=== PATIENT | male | born 1990 | race Caucasian/White ===

== ENCOUNTER 2016-06-08 14:00 | Inpatient (IN) | payer OTHER ==
[2016-06-08] MEDS ORDERED: chlordiazePOXIDE HCL 25 MG CAPSULE PO PRN (16:27)
[2016-06-08] MEDS ORDERED: MENTHOL/PHENOL 1 EACH UD MM PRN (16:27)
[2016-06-08] MEDS ORDERED: hydrOXYzine PAMOATE 50 MG CAPSULE (FP) PO PRN (16:27)
[2016-06-08] MEDS ORDERED: MAG HYDROX/AL HYDROX/SIMETH 30 ML UNIT-DOSE CUP PO PRN (16:27)
[2016-06-08] MEDS ORDERED: IBUPROFEN 400 MG TABLET (FP) PO PRN (16:27)
[2016-06-08] MEDS ORDERED: NICOTINE POLACRILEX 2 MG GUM BC PRN (16:27)
[2016-06-08] MEDS ORDERED: diphenhydrAMINE HCL 50 MG CAPSULE PO PRN (16:27)
[2016-06-08] MEDS ORDERED: MAGNESIUM CITRATE 300 ML BOTTLE PO PRN (16:27)
[2016-06-08] MEDS ORDERED: LOPERAMIDE HCL 2 MG CAPSULE PO PRN (16:27)
[2016-06-08] MEDS ORDERED: ACETAMINOPHEN 325 MG TABLET (FP) PO PRN (16:27)
[2016-06-08] MEDS ORDERED: guaiFENesin/D-METHORPHAN HB 10 ML UNIT-DOSE CUPS PO PRN (16:27)
[2016-06-08] MEDS ORDERED: P-EPHED 60MG/TRIPROLIDI 2.5MG TABLET PO PRN (16:27)
[2016-06-08] MEDS ORDERED: MAGNESIUM HYDROX 2400MG/30ML ORAL SUSPENSION 30 ML CUP PO PRN (16:27)
[2016-06-08] MEDS ORDERED: ALBUTEROL SO4 2.5/IPRATROPIUM 0.5 INH SOL 3 ML VIAL.NEB. NEB PRN (16:29)
[2016-06-08] MEDS ORDERED: ALBUTEROL SO4 6.7 GM HFA INHALER IH PRN (16:29)
[2016-06-08 16:30] VITALS: BMI 29.6
[2016-06-08] MEDS ORDERED: ONDANSETRON *ODT* 4 MG TABLET SL PRN (16:30)
--- NOTE | 2016-06-08 16:30 | HP ---
CIWA Score - CIWA Score Nausea/Vomitin Muscle Tremors: 4-Moderate,w/Arms Extend Anxiety: 4-Mod. Anxious/Guarded Agitation: 4-Moderately Restless Paroxysmal Sweats: 2 Orientation: 0-Oriented Tacttile Disturbances: 0-None Auditory Disturbances: 0-None Visual Disturbances: 0-None Headache: 0-None Present CIWA-Ar Total Score: 16 Admission ROS BHS - HPI Chief Complaint: WITHDRAWAL SX Allergies/Adverse Reactions: Allergies Allergy/AdvReac Type Severity Reaction Status Date / Time No Known Allergies Allergy Verified 06/08/16 16:23 History of Present Illness: 26 YEARS OLD MALE WITH LONG HISTORY OF ALCOHOL COCAINE MARIJUANA NICOTINE DEPENDENCE, HAS ASTHMA AND VOMITING X 1 EARLY TODAY FROM ALCOHOL WITHDRAWAL IS ADMITTED TO DETOX Exam Limitations: No Limitations - Ebola screening Have you traveled outside of the country in the last 21 days: No (N) Have you had contact with anyone from an Ebola affected area: No Have you been sick,other than usual withdrawal symptoms: No Do you have a fever: No - Review of Systems Constitutional: Chills, Changes in sleep, Weight Stable EENT: reports: No Symptoms Reported Respiratory: reports: No Symptoms reported Cardiac: reports: No Symptoms Reported GI: reports: Diarrhea, Nausea, Poor Fluid Intake, Vomiting, Abdominal cramping : reports: No Symptoms Reported Musculoskeletal: reports: No Symptoms Reported Integumentary: reports: No Symptoms Reported Neuro: reports: Tremors Endocrine: reports: No Symptoms Reported Hematology: reports: No Symptoms Reported Psychiatric: reports: Judgement Intact, Mood/Affect Appropiate, Orientated x3 Other Systems: Reviewed and Negative Patient History - Patient Medical History Hx Anemia: No Hx Asthma: Yes Hx Chronic Obstructive Pulmonary Disease (COPD): No Hx Cancer: No Hx Cardiac Disorders: No Hx Congestive Heart Failure: No Hx Hypertension: No Hx Hypercholesterolemia: No Hx Pacemaker: No HX Cerebrovascular Accident: No Hx Seizures: No Hx Dementia: No Hx Diabetes: No Hx Gastrointestinal Disorders: No Hx Liver Disease: No Hx Genitourinary Disorders: No Hx Sexually Transmitted Disorders: No Hx Renal Disease (ESRD): No Hx Thyroid Disease: No Hx Human Immunodeficiency Virus (HIV): No Hx Hepatitis C: No Hx Depression: No Hx Suicide Attempt: No Hx Bipolar Disorder: No Hx Schizophrenia: No - Patient Surgical History Past Surgical History: No - PPD History Previous Implant?: Yes Documented Results: Negative w/o proof Implanted On Prior [facility] Admission?: No PPD to be Administered?: Yes - Smoking Cessation Smoking history: Current every day smoker Have you smoked in the past 12 months: Yes Aproximately how many cigarettes per day: 2 Cigars Per Day: 0 Hx Chewing Tobacco Use: No Initiated information on smoking cessation: Yes 'Breaking Loose' booklet given: 06/08/16 - Substance & Tx. History Hx Alcohol Use: Yes Hx Substance Use: Yes Substance Use Type: Alcohol, Cocaine, Marijuana Hx Substance Use Treatment: No - Substances Abused Alcohol Route: Oral Frequency: Daily Amount used: 3 [place] Age of first use: 17 Date of Last Use: 06/07/16 Family Disease History - Family Disease History Family Disease History: Diabetes: Grandparent, Mother, Heart Disease: Mother Admission Physical Exam [facility] - Physical General Appearance: Yes: Nourished, Appropriately Dressed, Mild Distress, Tremorous, Irritable, Sweating, Anxious HEENTM: Yes: Hearing grossly Normal, Normal ENT Inspection, Normocephalic, Normal Voice Respiratory: Yes: Chest Non-Tender, Lungs Clear, Normal Breath Sounds, No Respiratory Distress, No Accessory Muscle Use Neck: Yes: Supple, Trachea in good position Breast: Yes: Breasts Symetrical, No Discharge, No masses Cardiology: Yes: Regular Rhythm, Regular Rate, S1, S2 Abdominal: Yes: Non Tender, Soft, Increased Bowel Sounds Genitourinary: Yes: Within Normal Limits Back: Yes: Normal Inspection Musculoskeletal: Yes: full range of Motion, Gait Steady Extremities: Yes: Normal Inspection, Normal Range of Motion, Non-Tender, Tremors Neurological: Yes: Fully Oriented, Alert, Motor Strength 5/5, Normal Mood/Affect , Normal Response Integumentary: Yes: Warm, Clammy Lymphatic: Yes: Within Normal Limits - Diagnostic (1) Alcohol dependence with uncomplicated withdrawal Current Visit: Yes Status: Acute (2) Asthma Current Visit: Yes Status: Acute Qualifiers: Asthma severity: mild intermittent Asthma complication type: with status asthmaticus Qualified Code(s): J45.22 - Mild intermittent asthma with status asthmaticus (3) Vomiting and diarrhea Current Visit: Yes Status: Acute Comment: ZOFRAN/IMODIUM ALCOHOL WITHDRAWAL RELATED (4) Nicotine dependence Current Visit: Yes Status: Acute Qualifiers: Nicotine product type: cigarettes Substance use status: in withdrawal Qualified Code(s): F17.213 - Nicotine dependence, cigarettes, with withdrawal Cleared for Admission BHS - Detox or Rehab [facility] Level of Care: Medically Managed Detox Regimen/Protocol: Librium S Breath Alcohol Content Breath Alcohol Content: 0 Vital Signs - Vital Signs Vital Signs Refused: No Temperature: 96 F Temperature Source: Oral Pulse Rate: 79 Respiratory Rate: 20 Blood Pressure: 139/76 BP Location: Left Arm Blood Pressure Position: Sitting - Height Height: 5 ft 5 in - Weight Weight: 178 lb Body Mass Index (BMI): 29.6 - Bowel Function Bowel Movement: Yes Urine Drug Screen - Control Is Test Valid: Yes - Results Drug Screen Negative: No Urine Drug Screen Results: THC-Marijuana, WILLAM-Cocaine
[2016-06-08] MEDS: chlordiazePOXIDE HCL 25 MG CAPSULE PO SCH (22:40)
[2016-06-08] MEDS: THIAMINE HCL 100 MG TABLET (FP) PO SCH (22:41)
[2016-06-08 23:09] LABS: PH,URINE 7.5 (5.0-8.0); URINE APPEARANCE CLEAR; URINE BILIRUBIN NEGATIVE (NEGATIVE); URINE BLOOD NEGATIVE (NEGATIVE); URINE COLOR LT. YELLOW; URINE GLUCOSE (UA) NEGATIVE (NEGATIVE); URINE KETONE NEGATIVE (NEGATIVE); URINE LEUK ESTERASE NEGATIVE (NEGATIVE); URINE NITRITE NEGATIVE (NEGATIVE); URINE PROTEIN NEGATIVE (NEGATIVE); URINE UROBILINOGEN 0.2 E.U/dl E.U./dl (0.2-1.0)
[2016-06-09] MEDS: chlordiazePOXIDE HCL 25 MG CAPSULE PO SCH ×4 (06:06→22:37)
[2016-06-09 10:10] LABS: MCH 29.9 pg (25.7-33.7); MCHC 33.5 g/dl (32.0-35.9); MEAN CELL VOLUME 89.5 fl (80-96); MEAN PLT VOLUME 9.3 fl (7.5-11.1); PLATELET COUNT 198 K/MM3 (134-434); RDW 14.9 % (11.9-15.9); WHITE BLOOD COUNT 8.1 K/mm3 (4.0-10.0)
[2016-06-09 10:46] LABS: ALBUMIN 4.3 g/dl (3.4-5.0); ALK PHOS 100 U/L (45-117); ANION GAP 9 (8-16); BILIRUBIN,TOTAL 0.5 mg/dL (0.2-1.0); CO2 25 mmol/L (21-32); CREATININE 1.1 mg/dL (0.7-1.3); GLUCOSE,RANDOM 85 mg/dL (74-106); SGOT/AST 17 U/L (15-37); SGPT/ALT 27 U/L (12-78); TOT PROT 7.1 g/dl (6.4-8.2)
[2016-06-09] MEDS: NICOTINE 14 MG/24 HOURS TOPICAL PATCH TD SCH (11:00)
[2016-06-09] MEDS: PRENATAL VITAMINS W/ FOLIC ACID TABLET (FP) PO SCH (11:00)
[2016-06-09 11:53] LABS: HIV 1 & 2 AB NEGATIVE; HIV 1 AGp24 NEGATIVE
--- NOTE | 2016-06-09 12:14 | PN ---
[facility] CIWA - CIWA Score Nausea/Vomitin (DIARRHEA) Muscle Tremors: 4-Moderate,w/Arms Extend Anxiety: 4-Mod. Anxious/Guarded Agitation: 4-Moderately Restless Paroxysmal Sweats: 1-Minimal Palms Moist Orientation: 0-Oriented Tacttile Disturbances: 3-Moderate Itch/Numb/Burn Auditory Disturbances: 0-None Visual Disturbances: 0-None Headache: 0-None Present CIWA-Ar Total Score: 19 BHS Progress Note (SOAP) Subjective: ANXIETY,IRRITABILITY,SWEATS,DIARRHEA. Objective: 06/09/16 12:14 Vital Signs Temperature 96.4 F L 06/09/16 09:50 Pulse Rate 80 06/09/16 09:50 Respiratory Rate 20 06/09/16 09:50 Blood Pressure 126/75 06/09/16 09:50 O2 Sat by Pulse Oximetry (%) Laboratory Last Values WBC 8.1 K/mm3 (4.0-10.0) 06/09/16 06:00 RBC 5.41 M/mm3 (4.00-5.60) 06/09/16 06:00 Hgb 16.2 GM/dL (11.7-16.9) 06/09/16 06:00 Hct 48.4 % (35.4-49) 06/09/16 06:00 MCV 89.5 fl (80-96) 06/09/16 06:00 MCHC 33.5 g/dl (32.0-35.9) 06/09/16 06:00 RDW 14.9 % (11.9-15.9) 06/09/16 06:00 Plt Count 198 K/MM3 (134-434) 06/09/16 06:00 MPV 9.3 fl (7.5-11.1) 06/09/16 06:00 Sodium 139 mmol/L (136-145) 06/09/16 06:00 Potassium 3.9 mmol/L (3.5-5.1) 06/09/16 06:00 Chloride 105 mmol/L (98-107) 06/09/16 06:00 Carbon Dioxide 25 mmol/L (21-32) 06/09/16 06:00 Anion Gap 9 (8-16) 06/09/16 06:00 BUN 6 mg/dL (7-18) L 06/09/16 06:00 Creatinine 1.1 mg/dL (0.7-1.3) 06/09/16 06:00 Creat Clearance w eGFR > 60 (>60) 06/09/16 06:00 Random Glucose 85 mg/dL (74-106) 06/09/16 06:00 Calcium 9.0 mg/dL (8.5-10.1) 06/09/16 06:00 Total Bilirubin 0.5 mg/dL (0.2-1.0) 06/09/16 06:00 AST 17 U/L (15-37) 06/09/16 06:00 ALT 27 U/L (12-78) 06/09/16 06:00 Alkaline Phosphatase 100 U/L (45-117) 06/09/16 06:00 Total Protein 7.1 g/dl (6.4-8.2) 06/09/16 06:00 Albumin 4.3 g/dl (3.4-5.0) 06/09/16 06:00 Urine Color Lt. yellow 06/08/16 22:05 Urine Appearance Clear 06/08/16 22:05 Urine pH 7.5 (5.0-8.0) 06/08/16 22:05 Ur Specific [place] 1.010 (1.001-1.035) 06/08/16 22:05 Urine Protein Negative (NEGATIVE) 06/08/16 22:05 Urine Glucose (UA) Negative (NEGATIVE) 06/08/16 22:05 Urine Ketones Negative (NEGATIVE) 06/08/16 22:05 Urine Blood Negative (NEGATIVE) 06/08/16 22:05 Urine Nitrite Negative (NEGATIVE) 06/08/16 22:05 Urine Bilirubin Negative (NEGATIVE) 06/08/16 22:05 Urine Urobilinogen 0.2 e.u/dl E.U./dl (0.2-1.0) 06/08/16 22:05 Ur Leukocyte Esterase Negative (NEGATIVE) 06/08/16 22:05 RPR Titer Nonreactive (NONREACTIVE) 06/09/16 06:00 HIV 1&2 Antibody Screen Negative 06/08/16 06:00 HIV P24 Antigen Negative 06/08/16 06:00 Assessment: 06/09/16 12:14 WITHDRAWAL SX Plan: CONTINUE DETOX IMODIUM PRN.
--- NOTE | 2016-06-09 16:16 | EKG ---
Test Reason : Blood Pressure : / mmHG Vent. Rate : 065 BPM Atrial Rate : 065 BPM P-R Int : 154 ms QRS Dur : 096 ms QT Int : 398 ms P-R-T Axes : 051 080 026 degrees QTc Int : 413 ms NORMAL SINUS RHYTHM MINIMAL VOLTAGE CRITERIA FOR LVH, MAY BE NORMAL VARIANT BORDERLINE ECG NO PREVIOUS ECGS AVAILABLE Confirmed by DARIUSZ MCCLURE, CHANEL ([id number]) on 06/09/2016 4:16:14 PM Referred By: Jl Penn Confirmed By:CHANEL ARZOLA MD
--- NOTE | 2016-06-09 19:37 | PN ---
S Progress Note Note: received nurse call patient requests ensure bmi 29.6 ensure 8 oz x 1 continue detox
[2016-06-09] MEDS: THIAMINE HCL 100 MG TABLET (FP) PO SCH (22:37)
[2016-06-10] MEDS: chlordiazePOXIDE HCL 25 MG CAPSULE PO SCH ×3 (05:49→17:18)
[2016-06-10] MEDS: PRENATAL VITAMINS W/ FOLIC ACID TABLET (FP) PO SCH (10:28)
[2016-06-10] MEDS: NICOTINE 14 MG/24 HOURS TOPICAL PATCH TD SCH (10:28)
--- NOTE | 2016-06-10 11:26 | PN ---
[facility] CIWA - CIWA Score Nausea/Vomitin-No Nausea/No Vomiting Muscle Tremors: 3 Anxiety: 4-Mod. Anxious/Guarded Agitation: 4-Moderately Restless Paroxysmal Sweats: 3 Orientation: 0-Oriented Tacttile Disturbances: 0-None Auditory Disturbances: 0-None Visual Disturbances: 0-None Headache: 0-None Present CIWA-Ar Total Score: 14 BHS Progress Note (SOAP) Subjective: Anxiety,tremors,sweating,interrupted sleep,restless Objective: 06/10/16 11:25 Vital Signs - 8 hr 06/10/16 06/10/16 06/10/16 03:34 06:26 09:35 Temperature 96.1 F L 96.8 F L Pulse Rate 68 91 H Respiratory 18 16 20 Rate Blood Pressure 115/75 122/78 Laboratory Last Values WBC 8.1 K/mm3 (4.0-10.0) 06/09/16 06:00 RBC 5.41 M/mm3 (4.00-5.60) 06/09/16 06:00 Hgb 16.2 GM/dL (11.7-16.9) 06/09/16 06:00 Hct 48.4 % (35.4-49) 06/09/16 06:00 MCV 89.5 fl (80-96) 06/09/16 06:00 MCHC 33.5 g/dl (32.0-35.9) 06/09/16 06:00 RDW 14.9 % (11.9-15.9) 06/09/16 06:00 Plt Count 198 K/MM3 (134-434) 06/09/16 06:00 MPV 9.3 fl (7.5-11.1) 06/09/16 06:00 Sodium 139 mmol/L (136-145) 06/09/16 06:00 Potassium 3.9 mmol/L (3.5-5.1) 06/09/16 06:00 Chloride 105 mmol/L (98-107) 06/09/16 06:00 Carbon Dioxide 25 mmol/L (21-32) 06/09/16 06:00 Anion Gap 9 (8-16) 06/09/16 06:00 BUN 6 mg/dL (7-18) L 06/09/16 06:00 Creatinine 1.1 mg/dL (0.7-1.3) 06/09/16 06:00 Creat Clearance w eGFR > 60 (>60) 06/09/16 06:00 Random Glucose 85 mg/dL (74-106) 06/09/16 06:00 Calcium 9.0 mg/dL (8.5-10.1) 06/09/16 06:00 Total Bilirubin 0.5 mg/dL (0.2-1.0) 06/09/16 06:00 AST 17 U/L (15-37) 06/09/16 06:00 ALT 27 U/L (12-78) 06/09/16 06:00 Alkaline Phosphatase 100 U/L (45-117) 06/09/16 06:00 Total Protein 7.1 g/dl (6.4-8.2) 06/09/16 06:00 Albumin 4.3 g/dl (3.4-5.0) 06/09/16 06:00 Urine Color Lt. yellow 06/08/16 22:05 Urine Appearance Clear 06/08/16 22:05 Urine pH 7.5 (5.0-8.0) 06/08/16 22:05 Ur Specific [place] 1.010 (1.001-1.035) 06/08/16 22:05 Urine Protein Negative (NEGATIVE) 06/08/16 22:05 Urine Glucose (UA) Negative (NEGATIVE) 06/08/16 22:05 Urine Ketones Negative (NEGATIVE) 06/08/16 22:05 Urine Blood Negative (NEGATIVE) 06/08/16 22:05 Urine Nitrite Negative (NEGATIVE) 06/08/16 22:05 Urine Bilirubin Negative (NEGATIVE) 06/08/16 22:05 Urine Urobilinogen 0.2 e.u/dl E.U./dl (0.2-1.0) 06/08/16 22:05 Ur Leukocyte Esterase Negative (NEGATIVE) 06/08/16 22:05 RPR Titer Nonreactive (NONREACTIVE) 06/09/16 06:00 HIV 1&2 Antibody Screen Negative 06/08/16 06:00 HIV P24 Antigen Negative 06/08/16 06:00 labs noted Assessment: 06/10/16 11:25 Withdrawal sx. Plan: Continue detox
[2016-06-10] MEDS: THIAMINE HCL 100 MG TABLET (FP) PO SCH (23:01)
[2016-06-10] MEDS: chlordiazePOXIDE 5 MG CAPSULE PO SCH (23:02)
[2016-06-11] MEDS: chlordiazePOXIDE 5 MG CAPSULE PO SCH ×2 (05:20→10:37)
[2016-06-11] MEDS: NICOTINE 14 MG/24 HOURS TOPICAL PATCH TD SCH (10:37)
[2016-06-11] MEDS: PRENATAL VITAMINS W/ FOLIC ACID TABLET (FP) PO SCH (10:37)
[2016-06-11 14:27] VITALS: BP 153/84; PULSE 84; TEMP 97
--- NOTE | 2016-06-11 15:01 | PN ---
BHS Progress Note (SOAP) Subjective: Loose stools, Tremors. Objective: PT. A & O X 2 (DISORIENTED ABOUT LOCATION). 06/11/16 14:59 Vital Signs Temperature 97 F L 06/11/16 14:26 Pulse Rate 84 06/11/16 14:26 Respiratory Rate 20 06/11/16 14:26 Blood Pressure 153/84 06/11/16 14:26 O2 Sat by Pulse Oximetry (%) Laboratory Last Values WBC 8.1 K/mm3 (4.0-10.0) 06/09/16 06:00 RBC 5.41 M/mm3 (4.00-5.60) 06/09/16 06:00 Hgb 16.2 GM/dL (11.7-16.9) 06/09/16 06:00 Hct 48.4 % (35.4-49) 06/09/16 06:00 MCV 89.5 fl (80-96) 06/09/16 06:00 MCHC 33.5 g/dl (32.0-35.9) 06/09/16 06:00 RDW 14.9 % (11.9-15.9) 06/09/16 06:00 Plt Count 198 K/MM3 (134-434) 06/09/16 06:00 MPV 9.3 fl (7.5-11.1) 06/09/16 06:00 Sodium 139 mmol/L (136-145) 06/09/16 06:00 Potassium 3.9 mmol/L (3.5-5.1) 06/09/16 06:00 Chloride 105 mmol/L (98-107) 06/09/16 06:00 Carbon Dioxide 25 mmol/L (21-32) 06/09/16 06:00 Anion Gap 9 (8-16) 06/09/16 06:00 BUN 6 mg/dL (7-18) L 06/09/16 06:00 Creatinine 1.1 mg/dL (0.7-1.3) 06/09/16 06:00 Creat Clearance w eGFR > 60 (>60) 06/09/16 06:00 Random Glucose 85 mg/dL (74-106) 06/09/16 06:00 Calcium 9.0 mg/dL (8.5-10.1) 06/09/16 06:00 Total Bilirubin 0.5 mg/dL (0.2-1.0) 06/09/16 06:00 AST 17 U/L (15-37) 06/09/16 06:00 ALT 27 U/L (12-78) 06/09/16 06:00 Alkaline Phosphatase 100 U/L (45-117) 06/09/16 06:00 Total Protein 7.1 g/dl (6.4-8.2) 06/09/16 06:00 Albumin 4.3 g/dl (3.4-5.0) 06/09/16 06:00 Urine Color Lt. yellow 06/08/16 22:05 Urine Appearance Clear 06/08/16 22:05 Urine pH 7.5 (5.0-8.0) 06/08/16 22:05 Ur Specific [place] 1.010 (1.001-1.035) 06/08/16 22:05 Urine Protein Negative (NEGATIVE) 06/08/16 22:05 Urine Glucose (UA) Negative (NEGATIVE) 06/08/16 22:05 Urine Ketones Negative (NEGATIVE) 06/08/16 22:05 Urine Blood Negative (NEGATIVE) 06/08/16 22:05 Urine Nitrite Negative (NEGATIVE) 06/08/16 22:05 Urine Bilirubin Negative (NEGATIVE) 06/08/16 22:05 Urine Urobilinogen 0.2 e.u/dl E.U./dl (0.2-1.0) 06/08/16 22:05 Ur Leukocyte Esterase Negative (NEGATIVE) 06/08/16 22:05 RPR Titer Nonreactive (NONREACTIVE) 06/09/16 06:00 HIV 1&2 Antibody Screen Negative 06/08/16 06:00 HIV P24 Antigen Negative 06/08/16 06:00 LABS NOTED. 06/11/16 15:00 Assessment: 06/11/16 15:00 WITHDRAWAL SYMPTOMS. Plan: CONTINUE DETOX. ADVISED PATIENT TO FOLLOW-UP WITH [facility] / REHAB MEDICAL PROVIDER AFTER DISCHARGE FROM DETOX FOR GENERAL MEDICAL ASSESSMENT AND FOR ABNORMAL LAB VALUES.
--- NOTE | 2016-06-11 15:53 | DS ---
[facility] Detox Discharge Summary Admission Date: 06/08/16 Discharge Date: 06/11/16 - History Present History: Alcohol Dependence Additional Comments: ADVISED PT. TO FOLLOW-UP WITH [facility] / REHAB MEDICAL PROVIDER FOR GENERAL MEDICAL ASSESSMENT. Pertinent Past History: Asthma. - Physical Exam Results Vital Signs: Vital Signs Temperature 97 F L 06/11/16 14:26 Pulse Rate 84 06/11/16 14:26 Respiratory Rate 20 06/11/16 14:26 Blood Pressure 153/84 06/11/16 14:26 O2 Sat by Pulse Oximetry (%) Pertinent Admission Physical Exam Findings: WITHDRAWAL SYMPTOMS. Laboratory Last Values WBC 8.1 K/mm3 (4.0-10.0) 06/09/16 06:00 RBC 5.41 M/mm3 (4.00-5.60) 06/09/16 06:00 Hgb 16.2 GM/dL (11.7-16.9) 06/09/16 06:00 Hct 48.4 % (35.4-49) 06/09/16 06:00 MCV 89.5 fl (80-96) 06/09/16 06:00 MCHC 33.5 g/dl (32.0-35.9) 06/09/16 06:00 RDW 14.9 % (11.9-15.9) 06/09/16 06:00 Plt Count 198 K/MM3 (134-434) 06/09/16 06:00 MPV 9.3 fl (7.5-11.1) 06/09/16 06:00 Sodium 139 mmol/L (136-145) 06/09/16 06:00 Potassium 3.9 mmol/L (3.5-5.1) 06/09/16 06:00 Chloride 105 mmol/L (98-107) 06/09/16 06:00 Carbon Dioxide 25 mmol/L (21-32) 06/09/16 06:00 Anion Gap 9 (8-16) 06/09/16 06:00 BUN 6 mg/dL (7-18) L 06/09/16 06:00 Creatinine 1.1 mg/dL (0.7-1.3) 06/09/16 06:00 Creat Clearance w eGFR > 60 (>60) 06/09/16 06:00 Random Glucose 85 mg/dL (74-106) 06/09/16 06:00 Calcium 9.0 mg/dL (8.5-10.1) 06/09/16 06:00 Total Bilirubin 0.5 mg/dL (0.2-1.0) 06/09/16 06:00 AST 17 U/L (15-37) 06/09/16 06:00 ALT 27 U/L (12-78) 06/09/16 06:00 Alkaline Phosphatase 100 U/L (45-117) 06/09/16 06:00 Total Protein 7.1 g/dl (6.4-8.2) 06/09/16 06:00 Albumin 4.3 g/dl (3.4-5.0) 06/09/16 06:00 Urine Color Lt. yellow 06/08/16 22:05 Urine Appearance Clear 06/08/16 22:05 Urine pH 7.5 (5.0-8.0) 06/08/16 22:05 Ur Specific [place] 1.010 (1.001-1.035) 06/08/16 22:05 Urine Protein Negative (NEGATIVE) 06/08/16 22:05 Urine Glucose (UA) Negative (NEGATIVE) 06/08/16 22:05 Urine Ketones Negative (NEGATIVE) 06/08/16 22:05 Urine Blood Negative (NEGATIVE) 06/08/16 22:05 Urine Nitrite Negative (NEGATIVE) 06/08/16 22:05 Urine Bilirubin Negative (NEGATIVE) 06/08/16 22:05 Urine Urobilinogen 0.2 e.u/dl E.U./dl (0.2-1.0) 06/08/16 22:05 Ur Leukocyte Esterase Negative (NEGATIVE) 06/08/16 22:05 RPR Titer Nonreactive (NONREACTIVE) 06/09/16 06:00 HIV 1&2 Antibody Screen Negative 06/08/16 06:00 HIV P24 Antigen Negative 06/08/16 06:00 LABS NOTED. - Treatment Hospital Course: Detoxed Safely, Responded well - Medication Discharge Medications: Ambulatory Orders Albuterol Sulfate Inhaler - [Ventolin Hfa Inhaler -] 2 inh PO Q4H 06/08/16 - Diagnosis (1) Alcohol dependence with uncomplicated withdrawal Current Visit: Yes Status: Acute (2) Asthma Current Visit: Yes Status: Chronic Qualifiers: Asthma severity: mild intermittent Asthma complication type: with status asthmaticus Qualified Code(s): J45.22 - Mild intermittent asthma with status asthmaticus (3) Nicotine dependence Current Visit: Yes Status: Chronic Qualifiers: Nicotine product type: cigarettes Substance use status: in withdrawal Qualified Code(s): F17.213 - Nicotine dependence, cigarettes, with withdrawal (4) Vomiting and diarrhea Current Visit: Yes Status: Acute - AMA Did Patient Leave Against Medical Advice: Yes (PATIENT DID NOT WANT TO STAY TO COMPLETE DETOX REGIMEN.)
[2016-06-11] MEDS ORDERED: chlordiazePOXIDE HCL 10 MG CAPSULE PO SCH (23:00)
== END 2016-06-11 15:59 | disposition left against medical advice (07) | DRG 770 ==
LOC: YASAS 14:00 → Y3N 18:12
PROVIDERS: ADMIT Internal Medicine; ATTEND Internal Medicine
PROC: HZ2ZZZZ Detoxification Services for Substance Abuse Treatment (ICD-10-PCS; principal; 2016-06-11)
DX: F10.230 Alcohol dependence with withdrawal, uncomplicated (principal); F17.210 Nicotine dependence, cigarettes, uncomplicated; R11.10 Vomiting, unspecified; R19.7 Diarrhea, unspecified
CPT/HCPCS: 36415; 80053; 81003; 85027; 86593; 87389; 93005; 93010

== ENCOUNTER 2021-01-20 12:55 | Inpatient (IN) | payer OTHER ==
[2021-01-20 15:11] VITALS: BMI 23.2
[2021-01-20] MEDS ORDERED: NICOTINE 10 MG CARTRIDGE (INHALER) IH PRN (19:47)
[2021-01-20] MEDS ORDERED: MAGNESIUM CITRATE 300 ML BOTTLE PO PRN (19:47)
[2021-01-20] MEDS ORDERED: P-EPHED 60MG/TRIPROLIDI 2.5MG TABLET PO PRN (19:47)
[2021-01-20] MEDS ORDERED: LOPERAMIDE HCL 2 MG CAPSULE PO PRN (19:47)
[2021-01-20] MEDS ORDERED: MAGNESIUM HYDROX 2400MG/30ML ORAL SUSPENSION 30 ML CUP PO PRN (19:47)
[2021-01-20] MEDS ORDERED: MAG HYDROX/AL HYDROX/SIMETH 30 ML UNIT-DOSE CUP PO PRN (19:47)
[2021-01-20] MEDS ORDERED: ALBUTEROL SO4 HFA INHALER IH ONE (20:46)
[2021-01-20] MEDS: ALBUTEROL SO4 HFA INHALER IH PRN (20:49)
[2021-01-20] MEDS ORDERED: TUBERCULIN PPD 5 TU/0.1ML VIAL ID ONE (21:58)
[2021-01-20] MEDS: MELATONIN 5 MG TABLETS PO SCH (22:03)
[2021-01-20] MEDS: THIAMINE HCL 100 MG TABLET (FP) PO SCH (22:05)
[2021-01-21] MEDS: ACETAMINOPHEN 325 MG TABLET (FP) PO PRN (06:21)
[2021-01-21 08:04] LABS: BLOOD UREA NITROGEN 9.6 mg/dL (7-18)
[2021-01-21 08:05] LABS: ALBUMIN 3.8 g/dl (3.4-5.0); CALCIUM 8.8 mg/dL (8.5-10.1)
[2021-01-21 08:09] LABS: CREATININE 1.1 mg/dL (0.55-1.3)
[2021-01-21 08:10] LABS: BILIRUBIN,TOTAL 0.5 mg/dL (0.2-1); TOT PROT 6.9 g/dl (6.4-8.2)
[2021-01-21 08:12] LABS: HEMATOCRIT 43.7 % (35.4-49); HEMOGLOBIN 14.8 GM/dL (11.7-16.9); MCH 30.1 pg (25.7-33.7); MCHC 33.9 g/dl (32.0-35.9); MEAN CELL VOLUME 88.6 fl (80-96); MEAN PLT VOLUME 8.3 fl (7.5-11.1); PLATELET COUNT 260 10^3/uL (134-434); RBC 4.93 M/mm3 (4.00-5.60); RDW 15.6 % (11.9-15.9); WHITE BLOOD COUNT 12.5 K/mm3 (4.0-10.0)
[2021-01-21] MEDS: methaDONE HCL 10 MG TABLET PO SCH (08:50)
[2021-01-21] MEDS: PRENATAL VITAMINS W/ FOLIC ACID TABLET (FP) PO SCH (09:37)
[2021-01-21 13:09] LABS: HIV INTERPRETATION NEGATIVE (NEGATIVE)
[2021-01-21] MEDS: hydrOXYzine PAMOATE 25 MG CAPSULE (FP) PO PRN ×2 (17:38→21:43)
[2021-01-21] MEDS: IBUPROFEN 400 MG TABLET (FP) PO PRN (17:39)
[2021-01-21 19:06] LABS: PH,URINE 6.5 (5.0-8.0); URINE APPEARANCE CLEAR; URINE BILIRUBIN NEGATIVE (NEGATIVE); URINE COLOR YELLOW; URINE GLUCOSE (UA) NEGATIVE (NEGATIVE); URINE KETONE NEGATIVE (NEGATIVE); URINE LEUK ESTERASE NEGATIVE (NEGATIVE); URINE NITRITE NEGATIVE (NEGATIVE); URINE PROTEIN NEGATIVE (NEGATIVE); URINE UROBILINOGEN 0.2 mg/dL (0.2-1.0)
[2021-01-21] MEDS: MELATONIN 5 MG TABLETS PO SCH (21:41)
[2021-01-21] MEDS: THIAMINE HCL 100 MG TABLET (FP) PO SCH (21:42)
[2021-01-22] MEDS: methaDONE HCL 10 MG TABLET PO SCH (07:24)
[2021-01-22] MEDS: IBUPROFEN 400 MG TABLET (FP) PO PRN (09:55)
[2021-01-22] MEDS: PRENATAL VITAMINS W/ FOLIC ACID TABLET (FP) PO SCH (09:56)
[2021-01-22] MEDS: METHOCARBAMOL 500 MG TABLET PO SCH ×4 (10:44→21:25)
[2021-01-22] MEDS: MELATONIN 5 MG TABLETS PO SCH (21:25)
[2021-01-22] MEDS: THIAMINE HCL 100 MG TABLET (FP) PO SCH (21:25)
[2021-01-23] MEDS: methaDONE HCL 10 MG TABLET PO SCH (06:26)
[2021-01-23] MEDS: METHOCARBAMOL 500 MG TABLET PO SCH ×4 (09:39→21:05)
[2021-01-23] MEDS: PRENATAL VITAMINS W/ FOLIC ACID TABLET (FP) PO SCH (09:39)
[2021-01-23] MEDS: MELATONIN 5 MG TABLETS PO SCH (21:05)
[2021-01-23] MEDS: THIAMINE HCL 100 MG TABLET (FP) PO SCH (21:05)
[2021-01-24 00:06] LABS: SARS-CoV-2 NAA Not Detected (Not Detected)
[2021-01-24] MEDS: methaDONE HCL 10 MG TABLET PO SCH (07:26)
[2021-01-24] MEDS: PRENATAL VITAMINS W/ FOLIC ACID TABLET (FP) PO SCH (09:24)
[2021-01-24] MEDS: METHOCARBAMOL 500 MG TABLET PO SCH ×4 (09:24→21:30)
[2021-01-24] MEDS: THIAMINE HCL 100 MG TABLET (FP) PO SCH (21:30)
[2021-01-24] MEDS: MELATONIN 5 MG TABLETS PO SCH (21:30)
[2021-01-25] MEDS: methaDONE HCL 10 MG TABLET PO SCH (06:40)
[2021-01-25] MEDS: PRENATAL VITAMINS W/ FOLIC ACID TABLET (FP) PO SCH (09:54)
[2021-01-25] MEDS: METHOCARBAMOL 500 MG TABLET PO SCH ×4 (09:54→21:12)
[2021-01-25] MEDS: THIAMINE HCL 100 MG TABLET (FP) PO SCH (21:12)
[2021-01-25] MEDS: hydrOXYzine PAMOATE 25 MG CAPSULE (FP) PO PRN (21:12)
[2021-01-25] MEDS: MELATONIN 5 MG TABLETS PO SCH (21:12)
[2021-01-26] MEDS: methaDONE HCL 10 MG TABLET PO SCH (06:32)
[2021-01-26] MEDS: hydrOXYzine PAMOATE 25 MG CAPSULE (FP) PO PRN (06:33)
[2021-01-26] MEDS: METHOCARBAMOL 500 MG TABLET PO SCH ×4 (09:27→21:08)
[2021-01-26] MEDS: PRENATAL VITAMINS W/ FOLIC ACID TABLET (FP) PO SCH (09:27)
[2021-01-26] MEDS ORDERED: PT OWN MED DRAWER 7, Y5N ONE (13:46)
[2021-01-26] MEDS: MELATONIN 5 MG TABLETS PO SCH (21:08)
[2021-01-26] MEDS: THIAMINE HCL 100 MG TABLET (FP) PO SCH (21:09)
[2021-01-27] MEDS: methaDONE HCL 10 MG TABLET PO SCH (06:51)
[2021-01-27] MEDS: PRENATAL VITAMINS W/ FOLIC ACID TABLET (FP) PO SCH (09:45)
[2021-01-27] MEDS: METHOCARBAMOL 500 MG TABLET PO SCH ×4 (09:45→21:30)
[2021-01-27] MEDS ORDERED: JANSSEN COVID-19 VAC,AD26/PF 0.5 ML IM ONE (11:00)
[2021-01-27] MEDS ORDERED: COLLOIDAL OATMEAL 1 BAR EACH TP PRN (12:16)
[2021-01-27] MEDS: ACETAMINOPHEN 325 MG TABLET (FP) PO PRN (17:29)
[2021-01-27] MEDS: hydrOXYzine PAMOATE 25 MG CAPSULE (FP) PO PRN (21:30)
[2021-01-27] MEDS: THIAMINE HCL 100 MG TABLET (FP) PO SCH (21:30)
[2021-01-27] MEDS: MELATONIN 5 MG TABLETS PO SCH (21:31)
[2021-01-28] MEDS: methaDONE HCL 10 MG TABLET PO SCH (06:41)
[2021-01-28] MEDS: PRENATAL VITAMINS W/ FOLIC ACID TABLET (FP) PO SCH (09:40)
[2021-01-28] MEDS: METHOCARBAMOL 500 MG TABLET PO SCH ×4 (09:40→21:01)
[2021-01-28] MEDS: hydrOXYzine PAMOATE 25 MG CAPSULE (FP) PO PRN ×2 (17:28→21:01)
[2021-01-28] MEDS: ACETAMINOPHEN 325 MG TABLET (FP) PO PRN (21:01)
[2021-01-28] MEDS: MELATONIN 5 MG TABLETS PO SCH (21:01)
[2021-01-28] MEDS: THIAMINE HCL 100 MG TABLET (FP) PO SCH (21:01)
[2021-01-29] MEDS: methaDONE HCL 10 MG TABLET PO SCH (06:40)
[2021-01-29] MEDS: METHOCARBAMOL 500 MG TABLET PO SCH ×4 (09:21→21:24)
[2021-01-29] MEDS: PRENATAL VITAMINS W/ FOLIC ACID TABLET (FP) PO SCH (09:21)
[2021-01-29] MEDS: hydrOXYzine PAMOATE 25 MG CAPSULE (FP) PO PRN ×3 (09:21→21:24)
[2021-01-29] MEDS: IBUPROFEN 400 MG TABLET (FP) PO PRN (17:18)
[2021-01-29] MEDS: MELATONIN 5 MG TABLETS PO SCH (21:24)
[2021-01-29] MEDS: THIAMINE HCL 100 MG TABLET (FP) PO SCH (21:24)
[2021-01-30] MEDS: guaiFENesin 200 MG/10 ML 10 ML UNIT-DOSE CUPS PO PRN ×3 (01:57→19:13)
[2021-01-30] MEDS: methaDONE HCL 10 MG TABLET PO SCH (07:16)
[2021-01-30] MEDS: METHOCARBAMOL 500 MG TABLET PO SCH ×4 (09:36→21:04)
[2021-01-30] MEDS: hydrOXYzine PAMOATE 25 MG CAPSULE (FP) PO PRN ×4 (09:36→21:04)
[2021-01-30] MEDS: PRENATAL VITAMINS W/ FOLIC ACID TABLET (FP) PO SCH (09:36)
[2021-01-30] MEDS: ALBUTEROL SO4 HFA INHALER IH PRN ×2 (13:17→21:04)
[2021-01-30] MEDS: THIAMINE HCL 100 MG TABLET (FP) PO SCH (21:04)
[2021-01-30] MEDS: MELATONIN 5 MG TABLETS PO SCH (21:04)
[2021-01-31] MEDS: methaDONE HCL 10 MG TABLET PO SCH (07:23)
[2021-01-31] MEDS: guaiFENesin 200 MG/10 ML 10 ML UNIT-DOSE CUPS PO PRN ×3 (07:23→21:22)
[2021-01-31] MEDS: METHOCARBAMOL 500 MG TABLET PO SCH ×4 (09:44→21:23)
[2021-01-31] MEDS: PRENATAL VITAMINS W/ FOLIC ACID TABLET (FP) PO SCH (09:44)
[2021-01-31] MEDS: hydrOXYzine PAMOATE 25 MG CAPSULE (FP) PO PRN ×3 (09:45→21:23)
[2021-01-31] MEDS: ALBUTEROL SO4 HFA INHALER IH PRN (09:45)
[2021-01-31] MEDS: MELATONIN 5 MG TABLETS PO SCH (21:23)
[2021-01-31] MEDS: THIAMINE HCL 100 MG TABLET (FP) PO SCH (21:23)
[2021-02-01] MEDS: methaDONE HCL 10 MG TABLET PO SCH (07:19)
[2021-02-01] MEDS: PRENATAL VITAMINS W/ FOLIC ACID TABLET (FP) PO SCH (09:45)
[2021-02-01] MEDS: hydrOXYzine PAMOATE 25 MG CAPSULE (FP) PO PRN ×3 (09:46→21:11)
[2021-02-01] MEDS: METHOCARBAMOL 500 MG TABLET PO SCH ×4 (09:47→21:09)
[2021-02-01] MEDS: guaiFENesin 200 MG/10 ML 10 ML UNIT-DOSE CUPS PO PRN ×2 (09:48→21:11)
[2021-02-01] MEDS: THIAMINE HCL 100 MG TABLET (FP) PO SCH (21:09)
[2021-02-01] MEDS: MELATONIN 5 MG TABLETS PO SCH (21:10)
[2021-02-02] MEDS: methaDONE HCL 10 MG TABLET PO SCH (06:40)
[2021-02-02] MEDS: METHOCARBAMOL 500 MG TABLET PO SCH ×4 (09:31→21:12)
[2021-02-02] MEDS: PRENATAL VITAMINS W/ FOLIC ACID TABLET (FP) PO SCH (09:31)
[2021-02-02] MEDS: guaiFENesin 200 MG/10 ML 10 ML UNIT-DOSE CUPS PO PRN ×3 (09:33→21:13)
[2021-02-02] MEDS: hydrOXYzine PAMOATE 25 MG CAPSULE (FP) PO PRN ×2 (17:22→21:12)
[2021-02-02] MEDS: MELATONIN 5 MG TABLETS PO SCH (21:12)
[2021-02-02] MEDS: THIAMINE HCL 100 MG TABLET (FP) PO SCH (21:12)
[2021-02-03] MEDS: methaDONE HCL 10 MG TABLET PO SCH (06:53)
[2021-02-03] MEDS: guaiFENesin 200 MG/10 ML 10 ML UNIT-DOSE CUPS PO PRN (06:53)
[2021-02-03 07:03] VITALS: BP 98/64; PULSE 85; TEMP 97.3
[2021-02-03] MEDS: PRENATAL VITAMINS W/ FOLIC ACID TABLET (FP) PO SCH (09:01)
[2021-02-03] MEDS: METHOCARBAMOL 500 MG TABLET PO SCH (09:01)
== END 2021-02-03 09:33 | disposition home or self-care (01) | DRG 772 ==
LOC: YASAS 12:55 → Y3E 20:30
PROVIDERS: ADMIT Allergy & Immunology; ATTEND Allergy & Immunology
PROC: HZ42ZZZ Group Counseling for Substance Abuse Treatment, Cognitive-Behavioral (ICD-10-PCS; principal; 2021-01-20)
DX: F10.20 Alcohol dependence, uncomplicated (principal); F14.20 Cocaine dependence, uncomplicated; F17.210 Nicotine dependence, cigarettes, uncomplicated; J45.909 Unspecified asthma, uncomplicated
CPT/HCPCS: 36415; 80053; 81003; 85027; 86780; 87389; C9803; U0003; U0005

== ENCOUNTER 2021-12-22 12:17 | Inpatient (IN) | payer OTHER ==
[2021-12-22 12:43] VITALS: BMI 21.7
[2021-12-22] MEDS ORDERED: MAGNESIUM CITRATE 300 ML BOTTLE PO PRN ×2 (13:33→13:45)
[2021-12-22] MEDS ORDERED: DICYCLOMINE HCL 10 MG CAPSULE PO PRN (13:33)
[2021-12-22] MEDS ORDERED: ACETAMINOPHEN 325 MG TABLET (FP) PO PRN ×2 (13:33)
[2021-12-22] MEDS ORDERED: NICOTINE POLACRILEX 2 MG GUM BUC PRN (13:33)
[2021-12-22] MEDS ORDERED: ONDANSETRON *ODT* 4 MG TABLET SL PRN (13:33)
[2021-12-22] MEDS ORDERED: MAGNESIUM HYDROX 2400MG/30ML ORAL SUSPENSION 30 ML CUP PO PRN ×2 (13:33→13:45)
[2021-12-22] MEDS ORDERED: NICOTINE 10 MG CARTRIDGE (INHALER) IH PRN (13:33)
[2021-12-22] MEDS ORDERED: BISMUTH SUBSALICYLATE 524 MG/30 ML PO PRN (13:33)
[2021-12-22] MEDS ORDERED: cloNIDine HCL 0.1 MG TABLET PO PRN (13:33)
[2021-12-22] MEDS ORDERED: BENZOCAINE/MENTHOL (CHLORASEPTIC ) LOZENGE MM PRN (13:33)
[2021-12-22] MEDS ORDERED: LOPERAMIDE HCL 2 MG CAPSULE PO PRN ×2 (13:33→13:45)
[2021-12-22] MEDS ORDERED: MAG HYDROX/AL HYDROX/SIMETH 30 ML UNIT-DOSE CUP PO PRN ×2 (13:33→13:45)
[2021-12-22] MEDS ORDERED: METHOCARBAMOL 500 MG TABLET PO PRN (13:33)
[2021-12-22] MEDS ORDERED: IBUPROFEN 400 MG TABLET (FP) PO PRN ×2 (13:33→13:45)
[2021-12-22] MEDS ORDERED: IBUPROFEN 600 MG TABLET (FP) PO PRN (13:33)
[2021-12-22] MEDS ORDERED: PRENATAL VITAMINS W/ FOLIC ACID TABLET (FP) PO SCH (13:45)
[2021-12-22] MEDS ORDERED: NICOTINE POLACRILEX 2 MG GUM BC PRN (13:45)
[2021-12-22] MEDS ORDERED: guaiFENesin 200 MG/10 ML 10 ML UNIT-DOSE CUPS PO PRN (13:45)
[2021-12-22] MEDS ORDERED: P-EPHED 60MG/TRIPROLIDI 2.5MG TABLET PO PRN (13:45)
[2021-12-22] MEDS ORDERED: methaDONE HCL 10 MG TABLET PO SCH (14:00)
[2021-12-22] MEDS ORDERED: hydrOXYzine PAMOATE 25 MG CAPSULE (FP) PO SCH (14:00)
[2021-12-22 15:45] LABS: HEMATOCRIT 41.2 % (35.4-49); HEMOGLOBIN 13.9 GM/dL (11.7-16.9); MCH 29.5 pg (25.7-33.7); MCHC 33.7 g/dl (32.0-35.9); MEAN CELL VOLUME 87.5 fl (80-96); MEAN PLT VOLUME 8.2 fl (7.5-11.1); PLATELET COUNT 268 10^3/uL (134-434); RBC 4.71 M/mm3 (4.00-5.60); RDW 14.5 % (11.9-15.9); WHITE BLOOD COUNT 6.6 K/mm3 (4.0-10.0)
[2021-12-22 15:56] LABS: ALBUMIN 3.8 g/dl (3.4-5.0)
[2021-12-22 16:00] LABS: BILIRUBIN,TOTAL 0.3 mg/dL (0.2-1); TOT PROT 7.3 g/dl (6.4-8.2)
[2021-12-22 16:02] LABS: BLOOD UREA NITROGEN 8.1 mg/dL (7-18); CALCIUM 9.2 mg/dL (8.5-10.1)
[2021-12-22 16:18] LABS: SYPHILIS W/ RPR CONF NON-REACTIVE (NONREACTIVE)
[2021-12-22] MEDS ORDERED: THIAMINE HCL 100 MG TABLET (FP) PO SCH (22:00)
[2021-12-22] MEDS ORDERED: MELATONIN 5 MG TABLETS PO SCH (22:00)
[2021-12-22] MEDS: MELATONIN 5 MG TABLETS PO SCH (22:06)
[2021-12-22] MEDS: THIAMINE HCL 100 MG TABLET (FP) PO SCH (22:06)
[2021-12-22] MEDS: ALBUTEROL SO4 HFA INHALER IH SCH ×3 (22:07→22:14)
[2021-12-22] MEDS: hydrOXYzine PAMOATE 25 MG CAPSULE (FP) PO SCH ×3 (22:08→22:15)
[2021-12-22] MEDS: PRENATAL VITAMINS W/ FOLIC ACID TABLET (FP) PO SCH (22:08)
[2021-12-22] MEDS: methaDONE 40 MG, methaDONE 10 MG PO SCH (22:09)
[2021-12-23] MEDS: ALBUTEROL SO4 HFA INHALER IH SCH ×3 (03:12→10:19)
[2021-12-23] MEDS: methaDONE 40 MG, methaDONE 10 MG PO SCH (06:37)
[2021-12-23] MEDS: hydrOXYzine PAMOATE 25 MG CAPSULE (FP) PO SCH ×2 (06:37→10:18)
[2021-12-23] MEDS: PRENATAL VITAMINS W/ FOLIC ACID TABLET (FP) PO SCH (10:18)
[2021-12-23] MEDS ORDERED: ALBUTEROL SO4 HFA INHALER IH PRN (12:35)
[2021-12-23 14:36] LABS: PH,URINE 7.5 (5.0-8.0); URINE APPEARANCE TURBID; URINE BILIRUBIN NEGATIVE (NEGATIVE); URINE COLOR YELLOW; URINE GLUCOSE (UA) NEGATIVE (NEGATIVE); URINE KETONE NEGATIVE (NEGATIVE); URINE LEUK ESTERASE NEGATIVE (NEGATIVE); URINE NITRITE NEGATIVE (NEGATIVE); URINE PROTEIN NEGATIVE (NEGATIVE)
[2021-12-23] MEDS: MELATONIN 5 MG TABLETS PO SCH (21:17)
[2021-12-23] MEDS: THIAMINE HCL 100 MG TABLET (FP) PO SCH (21:17)
[2021-12-24] MEDS: methaDONE 40 MG, methaDONE 10 MG PO SCH (06:16)
[2021-12-24] MEDS: PRENATAL VITAMINS W/ FOLIC ACID TABLET (FP) PO SCH (10:07)
[2021-12-24] MEDS: hydrOXYzine PAMOATE 25 MG CAPSULE (FP) PO PRN ×2 (10:07→21:14)
[2021-12-24] MEDS: MELATONIN 5 MG TABLETS PO SCH (21:14)
[2021-12-24] MEDS: THIAMINE HCL 100 MG TABLET (FP) PO SCH (21:14)
[2021-12-25] MEDS: methaDONE 40 MG, methaDONE 10 MG PO SCH (06:46)
[2021-12-25] MEDS: PRENATAL VITAMINS W/ FOLIC ACID TABLET (FP) PO SCH (09:43)
[2021-12-25] MEDS: THIAMINE HCL 100 MG TABLET (FP) PO SCH (21:14)
[2021-12-25] MEDS: hydrOXYzine PAMOATE 25 MG CAPSULE (FP) PO PRN (21:14)
[2021-12-25] MEDS: MELATONIN 5 MG TABLETS PO SCH (21:14)
[2021-12-26] MEDS: methaDONE 40 MG, methaDONE 10 MG PO SCH (06:20)
[2021-12-26] MEDS: ACETAMINOPHEN 325 MG TABLET (FP) PO PRN (10:16)
[2021-12-26] MEDS: PRENATAL VITAMINS W/ FOLIC ACID TABLET (FP) PO SCH (10:16)
[2021-12-26] MEDS: hydrOXYzine PAMOATE 25 MG CAPSULE (FP) PO PRN (21:06)
[2021-12-26] MEDS: THIAMINE HCL 100 MG TABLET (FP) PO SCH (21:06)
[2021-12-26] MEDS: MELATONIN 5 MG TABLETS PO SCH (21:06)
[2021-12-27] MEDS: methaDONE 40 MG, methaDONE 10 MG PO SCH (06:46)
[2021-12-27] MEDS: PRENATAL VITAMINS W/ FOLIC ACID TABLET (FP) PO SCH (09:58)
[2021-12-27] MEDS: hydrOXYzine PAMOATE 25 MG CAPSULE (FP) PO PRN ×2 (09:59→21:35)
[2021-12-27] MEDS: ACETAMINOPHEN 325 MG TABLET (FP) PO PRN (12:01)
[2021-12-27] MEDS: QUEtiapine FUMARATE 50 MG TABLET PO SCH (21:35)
[2021-12-27] MEDS: THIAMINE HCL 100 MG TABLET (FP) PO SCH (21:35)
[2021-12-27] MEDS: MELATONIN 5 MG TABLETS PO SCH (21:36)
[2021-12-28] MEDS: methaDONE 40 MG, methaDONE 10 MG PO SCH (06:47)
[2021-12-28] MEDS: PRENATAL VITAMINS W/ FOLIC ACID TABLET (FP) PO SCH (09:57)
[2021-12-28] MEDS: hydrOXYzine PAMOATE 25 MG CAPSULE (FP) PO PRN ×2 (09:59→21:16)
[2021-12-28] MEDS: SODIUM CHLORIDE NASAL SPRAY 44 ML BOTTLE NS PRN ×4 (13:20→21:16)
[2021-12-28] MEDS: THIAMINE HCL 100 MG TABLET (FP) PO SCH (21:15)
[2021-12-28] MEDS: MELATONIN 5 MG TABLETS PO SCH (21:15)
[2021-12-28] MEDS: QUEtiapine FUMARATE 50 MG TABLET PO SCH (21:15)
[2021-12-29] MEDS: methaDONE 40 MG, methaDONE 10 MG PO SCH (06:45)
[2021-12-29] MEDS: PRENATAL VITAMINS W/ FOLIC ACID TABLET (FP) PO SCH (09:52)
[2021-12-29] MEDS: METHOCARBAMOL 500 MG TABLET PO PRN (09:52)
[2021-12-29] MEDS: hydrOXYzine PAMOATE 25 MG CAPSULE (FP) PO PRN ×2 (09:52→21:10)
[2021-12-29] MEDS: SODIUM CHLORIDE NASAL SPRAY 44 ML BOTTLE NS PRN ×2 (09:53→21:11)
[2021-12-29] MEDS: MELATONIN 5 MG TABLETS PO SCH (21:09)
[2021-12-29] MEDS: THIAMINE HCL 100 MG TABLET (FP) PO SCH (21:10)
[2021-12-29] MEDS: QUEtiapine FUMARATE 50 MG TABLET PO SCH (21:10)
[2021-12-30] MEDS: methaDONE 40 MG, methaDONE 10 MG PO SCH (06:18)
[2021-12-30] MEDS: METHOCARBAMOL 500 MG TABLET PO PRN (09:49)
[2021-12-30] MEDS: hydrOXYzine PAMOATE 25 MG CAPSULE (FP) PO PRN ×2 (09:49→21:06)
[2021-12-30] MEDS: PRENATAL VITAMINS W/ FOLIC ACID TABLET (FP) PO SCH (09:49)
[2021-12-30] MEDS: SODIUM CHLORIDE NASAL SPRAY 44 ML BOTTLE NS PRN ×3 (09:50→21:05)
[2021-12-30] MEDS: MELATONIN 5 MG TABLETS PO SCH (21:04)
[2021-12-30] MEDS: THIAMINE HCL 100 MG TABLET (FP) PO SCH (21:05)
[2021-12-30] MEDS: QUEtiapine FUMARATE 100 MG TABLET (FP) PO SCH (21:05)
[2021-12-31] MEDS: SODIUM CHLORIDE NASAL SPRAY 44 ML BOTTLE NS PRN ×4 (06:27→21:26)
[2021-12-31] MEDS: methaDONE 40 MG, methaDONE 10 MG PO SCH (06:27)
[2021-12-31] MEDS: PRENATAL VITAMINS W/ FOLIC ACID TABLET (FP) PO SCH (09:37)
[2021-12-31] MEDS: hydrOXYzine PAMOATE 25 MG CAPSULE (FP) PO PRN ×2 (09:37→21:27)
[2021-12-31] MEDS: METHOCARBAMOL 500 MG TABLET PO PRN (14:39)
[2021-12-31] MEDS: THIAMINE HCL 100 MG TABLET (FP) PO SCH (21:26)
[2021-12-31] MEDS: MELATONIN 5 MG TABLETS PO SCH (21:26)
[2021-12-31] MEDS: QUEtiapine FUMARATE 100 MG TABLET (FP) PO SCH (21:27)
[2022-01-01] MEDS: methaDONE 40 MG, methaDONE 10 MG PO SCH (07:51)
[2022-01-01] MEDS: hydrOXYzine PAMOATE 25 MG CAPSULE (FP) PO PRN ×2 (07:52→21:09)
[2022-01-01] MEDS: METHOCARBAMOL 500 MG TABLET PO PRN ×2 (07:53→21:09)
[2022-01-01] MEDS: SODIUM CHLORIDE NASAL SPRAY 44 ML BOTTLE NS PRN ×2 (09:49→21:08)
[2022-01-01] MEDS: PRENATAL VITAMINS W/ FOLIC ACID TABLET (FP) PO SCH (09:49)
[2022-01-01] MEDS: QUEtiapine FUMARATE 100 MG TABLET (FP) PO SCH (21:09)
[2022-01-01] MEDS: MELATONIN 5 MG TABLETS PO SCH (21:09)
[2022-01-01] MEDS: THIAMINE HCL 100 MG TABLET (FP) PO SCH (21:09)
[2022-01-02] MEDS: METHOCARBAMOL 500 MG TABLET PO PRN ×2 (06:55→21:15)
[2022-01-02] MEDS: methaDONE 40 MG, methaDONE 10 MG PO SCH (06:55)
[2022-01-02] MEDS: SODIUM CHLORIDE NASAL SPRAY 44 ML BOTTLE NS PRN ×3 (06:56→21:15)
[2022-01-02] MEDS: PRENATAL VITAMINS W/ FOLIC ACID TABLET (FP) PO SCH (09:35)
[2022-01-02] MEDS: hydrOXYzine PAMOATE 25 MG CAPSULE (FP) PO PRN ×2 (09:36→21:15)
[2022-01-02] MEDS: QUEtiapine FUMARATE 100 MG TABLET (FP) PO SCH (21:15)
[2022-01-02] MEDS: THIAMINE HCL 100 MG TABLET (FP) PO SCH (21:15)
[2022-01-02] MEDS: SUVOREXANT 10 MG TABLET PO PRN (21:17)
[2022-01-03] MEDS: methaDONE 40 MG, methaDONE 10 MG PO SCH (06:33)
[2022-01-03] MEDS: hydrOXYzine PAMOATE 25 MG CAPSULE (FP) PO PRN ×2 (06:34→21:08)
[2022-01-03] MEDS: METHOCARBAMOL 500 MG TABLET PO PRN ×2 (06:35→21:08)
[2022-01-03] MEDS: PRENATAL VITAMINS W/ FOLIC ACID TABLET (FP) PO SCH (09:57)
[2022-01-03] MEDS: QUEtiapine FUMARATE 100 MG TABLET (FP) PO SCH (21:08)
[2022-01-03] MEDS: SODIUM CHLORIDE NASAL SPRAY 44 ML BOTTLE NS PRN (21:08)
[2022-01-03] MEDS: THIAMINE HCL 100 MG TABLET (FP) PO SCH (21:08)
[2022-01-03] MEDS: SUVOREXANT 10 MG TABLET PO PRN (21:09)
[2022-01-04] MEDS: methaDONE 40 MG, methaDONE 10 MG PO SCH (06:37)
[2022-01-04] MEDS: SODIUM CHLORIDE NASAL SPRAY 44 ML BOTTLE NS PRN ×2 (06:37→21:13)
[2022-01-04] MEDS: hydrOXYzine PAMOATE 25 MG CAPSULE (FP) PO PRN ×3 (06:37→21:14)
[2022-01-04] MEDS: METHOCARBAMOL 500 MG TABLET PO PRN ×3 (06:39→21:16)
[2022-01-04] MEDS: PRENATAL VITAMINS W/ FOLIC ACID TABLET (FP) PO SCH (10:06)
[2022-01-04] MEDS: THIAMINE HCL 100 MG TABLET (FP) PO SCH (21:14)
[2022-01-04] MEDS: QUEtiapine FUMARATE 100 MG TABLET (FP) PO SCH (21:14)
[2022-01-04] MEDS: SUVOREXANT 10 MG TABLET PO PRN (21:15)
[2022-01-05] MEDS ORDERED: methaDONE 40 MG, methaDONE 10 MG PO SCH (06:00)
[2022-01-05] MEDS ORDERED: INSULIN (NOVOLOG) ASPART 100 UNITS/ML 10ML VIAL ONE (07:07)
[2022-01-05] MEDS: METHOCARBAMOL 500 MG TABLET PO PRN (07:11)
[2022-01-05 07:14] VITALS: BP 119/68; PULSE 73; RESP 18; TEMP 97.7
[2022-01-05] MEDS: hydrOXYzine PAMOATE 25 MG CAPSULE (FP) PO PRN (09:04)
[2022-01-05] MEDS: PRENATAL VITAMINS W/ FOLIC ACID TABLET (FP) PO SCH (09:05)
== END 2022-01-05 09:57 | disposition home or self-care (01) | DRG 772 ==
LOC: YASAS 12:17 → UNDOADMIN 13:35 → Y3N 13:35 → Y5N 20:20
PROVIDERS: ADMIT Allergy & Immunology; ATTEND Psychiatry & Neurology Pain Medicine
PROC: HZ42ZZZ Group Counseling for Substance Abuse Treatment, Cognitive-Behavioral (ICD-10-PCS; principal; 2021-12-22)
DX: F11.20 Opioid dependence, uncomplicated (principal); F14.20 Cocaine dependence, uncomplicated; F12.20 Cannabis dependence, uncomplicated; F17.210 Nicotine dependence, cigarettes, uncomplicated; G47.00 Insomnia, unspecified; J45.909 Unspecified asthma, uncomplicated
CPT/HCPCS: 36415; 80053; 81003; 85027; 86780; 86803; 87522; C9803-CS; U0003; U0005

== ENCOUNTER 2022-03-31 12:35 | Inpatient (IN) | payer OTHER ==
[2022-03-31 14:30] VITALS: BMI 24.2
[2022-03-31] MEDS ORDERED: ACETAMINOPHEN 325 MG TABLET (FP) PO PRN (15:23)
[2022-03-31] MEDS ORDERED: IBUPROFEN 400 MG TABLET (FP) PO PRN (15:23)
[2022-03-31] MEDS ORDERED: guaiFENesin 200 MG/10 ML 10 ML UNIT-DOSE CUPS PO PRN (15:23)
[2022-03-31] MEDS ORDERED: NICOTINE 10 MG CARTRIDGE (INHALER) IH PRN (15:23)
[2022-03-31] MEDS ORDERED: POLYETHYLENE GLYCOL (HEALTHYLAX) 3350 17 GM PACKET PO PRN (15:23)
[2022-03-31] MEDS ORDERED: NICOTINE POLACRILEX 4 MG GUM BUC PRN (15:23)
[2022-03-31] MEDS ORDERED: P-EPHED 60MG/TRIPROLIDI 2.5MG TABLET PO PRN (15:23)
[2022-03-31] MEDS ORDERED: LOPERAMIDE HCL 2 MG CAPSULE PO PRN (15:23)
[2022-03-31] MEDS ORDERED: MAGNESIUM HYDROX 2400MG/30ML ORAL SUSPENSION 30 ML CUP PO PRN (15:23)
[2022-03-31] MEDS ORDERED: BENZOCAINE/MENTHOL (CHLORASEPTIC ) LOZENGE MM PRN (15:23)
[2022-03-31] MEDS ORDERED: NICOTINE 21 MG/24 HOURS TOPICAL PATCH TD PRN (15:23)
[2022-03-31] MEDS ORDERED: MAG HYDROX/AL HYDROX/SIMETH 30 ML UNIT-DOSE CUP PO PRN (15:23)
[2022-03-31] MEDS ORDERED: hydrOXYzine PAMOATE 25 MG CAPSULE (FP) PO PRN (15:23)
[2022-03-31] MEDS ORDERED: MELATONIN 5 MG TABLETS PO SCH (22:00)
[2022-03-31] MEDS ORDERED: THIAMINE HCL 100 MG TABLET (FP) PO SCH (22:00)
[2022-04-01 06:35] VITALS: RESP 20; TEMP 97.5
[2022-04-01] MEDS ORDERED: PRENATAL VITAMINS W/ FOLIC ACID TABLET (FP) PO SCH (10:00)
[2022-04-01] MEDS ORDERED: METHOCARBAMOL 500 MG TABLET PO PRN (10:26)
[2022-04-01 10:46] LABS: HEMATOCRIT 47.9 % (35.4-49); MCH 28.2 pg (25.7-33.7); MCHC 33.4 g/dl (32.0-35.9); MEAN CELL VOLUME 84.4 fl (80-96); MEAN PLT VOLUME 7.9 fl (7.5-11.1); PLATELET COUNT 321 10^3/uL (134-434); RBC 5.68 M/mm3 (4.00-5.60); RDW 16.4 % (11.9-15.9); WHITE BLOOD COUNT 9.9 K/mm3 (4.0-10.0)
[2022-04-01 11:40] LABS: BILIRUBIN,TOTAL 0.5 mg/dL (0.2-1); BLOOD UREA NITROGEN 8.2 mg/dL (7-18); CALCIUM 10.1 mg/dL (8.5-10.1); CREATININE 0.8 mg/dL (0.55-1.3); TOT PROT 8.1 g/dl (6.4-8.2)
[2022-04-01 12:44] VITALS: BP 123/70; PULSE 86
[2022-04-01] MEDS ORDERED: ONDANSETRON *ODT* 4 MG TABLET SL PRN (13:01)
== END 2022-04-01 13:33 | disposition still patient (30) | DRG 772 ==
LOC: YASAS 12:35 → Y3E 21:07
PROVIDERS: ADMIT Allergy & Immunology; ATTEND Psychiatry & Neurology Pain Medicine
PROC: HZ42ZZZ Group Counseling for Substance Abuse Treatment, Cognitive-Behavioral (ICD-10-PCS; principal; 2022-03-31)
DX: F11.20 Opioid dependence, uncomplicated (principal); F17.210 Nicotine dependence, cigarettes, uncomplicated; F41.9 Anxiety disorder, unspecified
CPT/HCPCS: 36415; 80053; 85027; 86780; 86803; 87522; 87811; C9803-CS; Q0162; U0003; U0005

== ENCOUNTER 2022-04-01 13:38 | Inpatient (IN) | payer OTHER ==
[2022-04-01] MEDS ORDERED: ACETAMINOPHEN 325 MG TABLET (FP) PO PRN ×2 (13:48)
[2022-04-01] MEDS ORDERED: methaDONE HCL 10 MG TABLET (FOR DETOX USE ONLY) PO ONE (13:48)
[2022-04-01] MEDS ORDERED: ONDANSETRON *ODT* 4 MG TABLET SL PRN (13:48)
[2022-04-01] MEDS ORDERED: DICYCLOMINE HCL 10 MG CAPSULE PO PRN (13:48)
[2022-04-01] MEDS ORDERED: cloNIDine HCL 0.1 MG TABLET PO PRN (13:48)
[2022-04-01] MEDS ORDERED: NICOTINE 10 MG CARTRIDGE (INHALER) IH PRN (13:48)
[2022-04-01] MEDS ORDERED: POLYETHYLENE GLYCOL (HEALTHYLAX) 3350 17 GM PACKET PO PRN (13:48)
[2022-04-01] MEDS ORDERED: BENZOCAINE/MENTHOL (CHLORASEPTIC ) LOZENGE MM PRN (13:48)
[2022-04-01] MEDS ORDERED: LOPERAMIDE HCL 2 MG CAPSULE PO PRN (13:48)
[2022-04-01] MEDS ORDERED: IBUPROFEN 400 MG TABLET (FP) PO PRN (13:48)
[2022-04-01] MEDS ORDERED: BISMUTH SUBSALICYLATE 262 MG/15 ML BTL PO PRN (13:48)
[2022-04-01] MEDS ORDERED: hydrOXYzine PAMOATE 25 MG CAPSULE (FP) PO PRN (13:48)
[2022-04-01] MEDS ORDERED: MAG HYDROX/AL HYDROX/SIMETH 30 ML UNIT-DOSE CUP PO PRN (13:48)
[2022-04-01] MEDS ORDERED: NALOXONE HCL (KLOXXADO) 8 MG SPRAY NS PRN (13:48)
[2022-04-01] MEDS ORDERED: IBUPROFEN 600 MG TABLET (FP) PO PRN (13:48)
[2022-04-01] MEDS ORDERED: MAGNESIUM HYDROX 2400MG/30ML ORAL SUSPENSION 30 ML CUP PO PRN (13:48)
[2022-04-01] MEDS: diazePAM 5 MG TABLET PO PRN ×2 (14:15→22:42)
[2022-04-01] MEDS: METHOCARBAMOL 500 MG TABLET PO PRN ×2 (14:16→22:42)
[2022-04-01] MEDS ORDERED: THIAMINE HCL 100 MG TABLET (FP) PO SCH (22:00)
[2022-04-01] MEDS ORDERED: MELATONIN 5 MG TABLETS PO SCH (22:00)
[2022-04-02 09:57] VITALS: BP 113/64; PULSE 93; RESP 18; TEMP 9705
[2022-04-02] MEDS ORDERED: PRENATAL VITAMINS W/ FOLIC ACID TABLET (FP) PO SCH (10:00)
[2022-04-02] MEDS ORDERED: FLU VACC QS2022-23(6MOS UP)/PF 60 MCG/0.5 ML SYRINGE IM ONE (12:00)
[2022-04-03] MEDS ORDERED: methaDONE HCL 10 MG TABLET (FOR DETOX USE ONLY) PO ONE (10:00)
[2022-04-05] MEDS ORDERED: methaDONE HCL 10 MG TABLET (FOR DETOX USE ONLY) PO ONE (10:00)
== END 2022-04-02 10:15 | disposition left against medical advice (07) | DRG 770 ==
LOC: YASAS 13:38 → Y6N 13:43
PROVIDERS: ADMIT Allergy & Immunology; ATTEND Surgery
PROC: HZ2ZZZZ Detoxification Services for Substance Abuse Treatment (ICD-10-PCS; principal; 2022-04-01)
DX: F11.23 Opioid dependence with withdrawal (principal); F17.210 Nicotine dependence, cigarettes, uncomplicated

== ENCOUNTER 2023-09-05 13:51 | Inpatient (IN) | payer OTHER ==
[2023-09-05 16:53] VITALS: BMI 21.9
[2023-09-05] MEDS ORDERED: BENZOCAINE/MENTHOL (CHLORASEPTIC ) LOZENGE MM PRN (19:06)
[2023-09-05] MEDS ORDERED: MAGNESIUM HYDROX 2400MG/30ML ORAL SUSPENSION 30 ML CUP PO PRN (19:06)
[2023-09-05] MEDS ORDERED: BISMUTH SUBSALICYLATE 524 MG/30 ML PO PRN (19:06)
[2023-09-05] MEDS ORDERED: MAG HYDROX/AL HYDROX/SIMETH 30 ML UNIT-DOSE CUP PO PRN (19:06)
[2023-09-05] MEDS ORDERED: BENZONATATE 200 MG CAPSULE PO PRN (19:06)
[2023-09-05] MEDS ORDERED: guaiFENesin 600 MG TABLET.ER (FP) PO PRN (19:06)
[2023-09-05] MEDS ORDERED: DICYCLOMINE HCL 10 MG CAPSULE PO PRN (19:06)
[2023-09-05] MEDS ORDERED: NALOXONE HCL (KLOXXADO) 8 MG SPRAY NS PRN (19:06)
[2023-09-05] MEDS ORDERED: NALOXONE HCL 0.4 MG/ML VIAL IM PRN (19:06)
[2023-09-05] MEDS ORDERED: LOPERAMIDE HCL 2 MG CAPSULE PO PRN (19:06)
[2023-09-05] MEDS ORDERED: IBUPROFEN 400 MG TABLET (FP) PO PRN (19:06)
[2023-09-05] MEDS ORDERED: POLYETHYLENE GLYCOL (HEALTHYLAX) 3350 17 GM PACKET PO PRN (19:06)
[2023-09-05] MEDS ORDERED: methaDONE HCL 10 MG TABLET (FOR DETOX USE ONLY) ONE (19:35)
[2023-09-05] MEDS: methaDONE HCL 10 MG TABLET (FOR DETOX USE ONLY) PO ONE (19:38)
[2023-09-05] MEDS: hydrOXYzine PAMOATE 25 MG CAPSULE (FP) PO PRN (22:52)
[2023-09-05] MEDS: MELATONIN 5 MG TABLETS PO SCH (22:52)
[2023-09-05] MEDS: THIAMINE 100 MG TABLET PO SCH (22:52)
[2023-09-05] MEDS: METHOCARBAMOL 500 MG TABLET PO PRN (22:53)
[2023-09-06] MEDS: PRENATAL VITAMINS W/ FOLIC ACID TABLET (FP) PO SCH (09:08)
[2023-09-06 12:16] LABS: HEMOGLOBIN 14.5 GM/dL (11.7-16.9); MCH 27.8 pg (25.7-33.7); MCHC 33.7 g/dl (32.0-35.9); MEAN CELL VOLUME 82.5 fl (80-96); PLATELET COUNT 297 10^3/uL (134-434); RBC 5.21 M/mm3 (4.00-5.60); RDW 16.9 % (11.9-15.9); WHITE BLOOD COUNT 9.1 K/mm3 (4.0-10.0)
[2023-09-06 13:13] LABS: CHLORIDE 108 mmol/L (98-107); POTASSIUM 4.4 mmol/L (3.5-5.1); SODIUM 138 mmol/L (136-145)
[2023-09-06 13:15] LABS: ALBUMIN 3.5 g/dl (3.4-5.0); ANION GAP 4 mmol/L (4-13); BLOOD UREA NITROGEN 11.4 mg/dL (7-18); CALCIUM 9.3 mg/dL (8.5-10.1); CO2 26 mmol/L (21-32); GLUCOSE,RANDOM 110 mg/dL (74-106)
[2023-09-06 13:18] LABS: CREATININE 0.8 mg/dL (0.55-1.3); SGOT/AST 22 U/L (15-37); SGPT/ALT 27 U/L (13-61)
[2023-09-06 13:20] LABS: BILIRUBIN,TOTAL 0.4 mg/dL (0.2-1); TOT PROT 7.3 g/dl (6.4-8.2)
[2023-09-06 13:21] LABS: ALK PHOS 105 U/L (45-117)
[2023-09-06] MEDS: cloNIDine HCL 0.1 MG TABLET PO PRN (18:13)
[2023-09-06] MEDS: diazePAM 5 MG TABLET PO PRN (22:27)
[2023-09-06] MEDS: SUVOREXANT 10 MG TABLET PO PRN (22:28)
[2023-09-07] MEDS: methaDONE HCL 10 MG TABLET (FOR DETOX USE ONLY) PO ONE ×2 (10:44→13:18)
[2023-09-07] MEDS: ONDANSETRON *ODT* 4 MG TABLET SL PRN (10:46)
[2023-09-07] MEDS: diazePAM 5 MG TABLET PO ONE (13:17)
[2023-09-07] MEDS: IBUPROFEN 600 MG TABLET (FP) PO PRN (17:03)
[2023-09-07] MEDS: METHOCARBAMOL 500 MG TABLET PO PRN (22:06)
[2023-09-08] MEDS: methaDONE HCL 10 MG TABLET (FOR DETOX USE ONLY) PO ONE (10:00)
[2023-09-08] MEDS: hydrOXYzine PAMOATE 25 MG CAPSULE (FP) PO PRN (12:45)
[2023-09-08] MEDS: ACETAMINOPHEN 325 MG TABLET (FP) PO PRN (16:59)
[2023-09-09 06:22] VITALS: RESP 18
[2023-09-09 09:31] VITALS: PULSE 100; TEMP 97.7
[2023-09-09] MEDS ORDERED: methaDONE HCL 10 MG TABLET (FOR DETOX USE ONLY) PO ONE (10:00)
[2023-09-09 13:07] VITALS: BP 144/79
== END 2023-09-09 16:28 | disposition home or self-care (01) | DRG 773 ==
LOC: YASAS 13:51 → Y3N 19:41
PROVIDERS: ADMIT Allergy & Immunology; ATTEND Surgery
PROC: HZ2ZZZZ Detoxification Services for Substance Abuse Treatment (ICD-10-PCS; principal; 2023-09-05)
DX: F11.23 Opioid dependence with withdrawal (principal); F12.20 Cannabis dependence, uncomplicated; F17.210 Nicotine dependence, cigarettes, uncomplicated; F41.9 Anxiety disorder, unspecified; Z87.09 Personal history of other diseases of the respiratory system; Z86.19 Personal history of other infectious and parasitic diseases
CPT/HCPCS: 36415; 80053; 80305; 80307; 85027; 86780; 93005; 93010; Q0162